=== PATIENT | male | born 1960 | race Caucasian/White ===

== ENCOUNTER 2017-03-15 06:30 | Day surgery (SDC) | payer OTHER ==
[~2017-03-15] VITALS: Ht 188 cm; Wt 85.7 kg
[2017-03-15] MEDS ORDERED: CARV6.252 PO (08:14)
[2017-03-15] MEDS ORDERED: LACT10SO60 PO (08:14)
[2017-03-15] MEDS ORDERED: [UNRECOGNIZED DRUG - CODE] PO (08:14)
[2017-03-15] MEDS ORDERED: CHOL20005 PO (08:14)
[2017-03-15] MEDS ORDERED: AMLO-27 PO (08:14)
[2017-03-15] MEDS ORDERED: FURO40TA9 PO (08:14)
[2017-03-15] MEDS ORDERED: APIX5TAB PO (08:14)
[2017-03-15] MEDS ORDERED: POTA99TA22 PO (08:14)
[2017-03-15] MEDS ORDERED: ASPI81CT80 PO (08:14)
[2017-03-15] MEDS ORDERED: ALBU0.0912 IH (08:14)
[2017-03-15 08:58] LABS: ANION GAP 8.6 (8-16); CALCIUM 7.9 mg/dL (8.5-10.1); CARBON DIOXIDE 29.9 mmol/L (21-32); CREATININE 1.5 mg/dL (0.6-1.3); POTASSIUM 3.5 mmol/L (3.5-5.1)
[2017-03-15 09:02] LABS: ALBUMIN 1.8 g/dL (3.4-5.0); TOTAL BILIRUBIN 0.5 mg/dL (0.0-1.0); TOTAL PROTEIN, SERUM 4.8 g/dL (6.4-8.2)
== END 2017-03-15 10:34 | disposition home or self-care (01) ==
LOC: MOR 06:30 → MMU 06:40 → MOR 10:34
PROVIDERS: ATTEND Internal Medicine Gastroenterology
DX: R18.8 Other ascites (principal); I50.9 Heart failure, unspecified; I27.2 Other secondary pulmonary hypertension; R06.02 Shortness of breath; Z98.890 Other specified postprocedural states
CPT/HCPCS: 36415; 49083; 76705; 80053; Q0092; 49082

== ENCOUNTER 2017-03-24 06:25 | Day surgery (SDC) | payer OTHER ==
[~2017-03-24] VITALS: Ht 188 cm; Wt 85.7 kg
[~2017-03-24 06:25] MED LIST: ALBU0.0912 IH; AMLO-27 PO; APIX5TAB PO; ASPI81CT80 PO; CARV6.252 PO; CHOL20005 PO; FURO40TA9 PO; LACT10SO60 PO; POTA99TA22 PO; [UNRECOGNIZED DRUG - CODE] PO
== END 2017-03-24 07:52 | disposition home or self-care (01) ==
LOC: MDS 06:25 → MMU 06:28 → MDS 07:52
PROVIDERS: ATTEND Internal Medicine Gastroenterology
DX: Z53.8 Procedure and treatment not carried out for other reasons (principal); R18.8 Other ascites; R06.02 Shortness of breath; I27.2 Other secondary pulmonary hypertension; I50.9 Heart failure, unspecified; Z98.890 Other specified postprocedural states
CPT/HCPCS: 76705; Q0092

== ENCOUNTER 2017-04-21 06:20 | Day surgery (SDC) | payer OTHER ==
[~2017-04-21] VITALS: Ht 188 cm; Wt 85.7 kg
== END 2017-04-21 08:56 | disposition home or self-care (01) ==
LOC: MDS 06:20 → MMU 06:22 → MDS 08:56
PROVIDERS: ATTEND Internal Medicine Gastroenterology
DX: Z53.8 Procedure and treatment not carried out for other reasons (principal)
CPT/HCPCS: 36415; 76705; 82565; Q0092